=== PATIENT | female | born 1965 | race Caucasian/White ===

== ENCOUNTER 2017-01-31 19:30 | Emergency (ER) | payer MEDICAID ==
[2017-01-31 20:51] LABS: APPEARANCE CLEAR (CLEAR); BILIRUBIN NEGATIVE (NEGATIVE); COLOR YELLOW (YELLOW); GLUCOSE NEGATIVE (NEGATIVE); KETONE NEGATIVE (NEGATIVE); LEUKOCYTE ESTERASE 2+ (NEGATIVE); NITRITE NEGATIVE (NEGATIVE); PROTEIN NEGATIVE (NEGATIVE); UROBILINOGEN NORMAL (NORMAL)
[2017-01-31 20:52] LABS: BACTERIA MODERATE /hpf (NONE SEEN); EPITHELIAL CELLS 0-5 /hpf (0-5); RED CELLS - URINE 0-5 /hpf (0-5)
[2017-01-31 20:53] LABS: MUCUS <1+ /lpf (NONE SEEN)
== END 2017-01-31 21:20 | disposition home or self-care (01) ==
LOC: D.ER 19:30
PROVIDERS: Nurse Practitioner Acute Care
DX: S41.101D Unspecified open wound of right upper arm, subsequent encounter (principal); X58.XXXD Exposure to other specified factors, subsequent encounter; Z48.00 Encounter for change or removal of nonsurgical wound dressing; A59.01 Trichomonal vulvovaginitis

== ENCOUNTER 2017-04-16 18:23 | Emergency (ER) | payer MEDICAID | END 2017-04-16 20:26 | disposition home or self-care (01) | LOC: D.ER 18:23 | DX: S93.401A Sprain of unspecified ligament of right ankle, initial encounter (principal); W19.XXXA Unspecified fall, initial encounter; Y93.01 Activity, walking, marching and hiking; Y92.017 Garden or yard in single-family (private) house as the place of occurrence of the external cause; F17.200 Nicotine dependence, unspecified, uncomplicated ==

== ENCOUNTER 2017-04-20 19:45 | Emergency (ER) | payer MEDICAID | END 2017-04-20 22:55 | disposition home or self-care (01) | LOC: D.ER 19:45 | DX: S93.401A Sprain of unspecified ligament of right ankle, initial encounter (principal); X58.XXXA Exposure to other specified factors, initial encounter; M54.12 Radiculopathy, cervical region; F17.200 Nicotine dependence, unspecified, uncomplicated ==

== ENCOUNTER 2017-06-26 16:01 | Emergency (ER) | payer MEDICAID | END 2017-06-26 17:44 | disposition home or self-care (01) | LOC: D.ER 16:01 | DX: M79.601 Pain in right arm (principal) ==

== ENCOUNTER 2017-12-19 11:56 | Emergency (ER) | payer MEDICAID ==
[2017-12-19 12:56] LABS: APPEARANCE CLEAR (CLEAR); BACTERIA FEW /hpf (NONE SEEN); BILIRUBIN NEGATIVE (NEGATIVE); COLOR YELLOW (YELLOW); EPITHELIAL CELLS 0-5 /hpf (0-5); GLUCOSE NEGATIVE (NEGATIVE); KETONE NEGATIVE (NEGATIVE); NITRITE NEGATIVE (NEGATIVE); PROTEIN NEGATIVE (NEGATIVE); RED CELLS - URINE 0-5 /hpf (0-5); UROBILINOGEN NORMAL (NORMAL); WHITE CELLS - URINE RARE /hpf (0-5)
[2017-12-19 13:37] LABS: ALBUMIN 3.8 g/dL (3.4-5.0); ANION GAP 15.9 mmol/L (8-16); BILIRUBIN - TOTAL 0.34 mg/dL (0.2-1.3); CALCIUM 9.1 mg/dL (8.5-10.1); CARBON DIOXIDE 21.4 mmol/L (21.0-32.0); CREATININE - SERUM 0.9 mg/dL (0.6-1.3); POTASSIUM - SERUM 3.3 mmol/L (3.5-5.1); PROTEIN - SERUM 7.4 g/dL (6.4-8.2)
[2017-12-19 13:42] LABS: BASOPHILS 0.1 % (0-2); EOSINOPHILS 0.4 % (0-7); HEMATOCRIT 40.3 % (36.0-48.0); IMMATURE GRANULOCYTES 0.3 % (0-5); LYMPHOCYTES 28.7 % (15-50); MCH 32.3 pg (26.0-34.0); MCHC 34.7 g/dL (31.0-37.0); MCV 93.1 fL (80.0-100.0); MEAN PLATELET VOLUME 10.5 fL (7.4-10.4); MONOCYTES 8.7 % (2-11); NEUTROPHILS 61.8 % (40-80); PLATELET COUNT 377 10x3/uL (130-400); RBC 4.33 10x6/uL (4.00-5.40); RDW 12.5 % (11.5-14.5); WBC 13.4 10x3/uL (4.8-10.8)
[2017-12-19 15:46] LABS: UDS - AMPHET POSITIVE QUAL (NEGATIVE); UDS - BARB NEGATIVE QUAL (NEGATIVE); UDS - BENZO NEGATIVE QUAL (NEGATIVE); UDS - COCAINE NEGATIVE QUAL (NEGATIVE); UDS - OPIATE NEGATIVE QUAL (NEGATIVE); UDS - PCP NEGATIVE QUAL (NEGATIVE); UDS - THC POSITIVE QUAL (NEGATIVE)
== END 2017-12-19 17:23 | disposition home or self-care (01) ==
LOC: D.ER 11:56
PROVIDERS: Emergency Medicine
DX: K59.00 Constipation, unspecified (principal); K92.1 Melena; F15.10 Other stimulant abuse, uncomplicated; F12.10 Cannabis abuse, uncomplicated